=== PATIENT | female | born 1985 | race Caucasian/White ===

== ENCOUNTER 2016-09-14 08:24 | Emergency (ER) | payer OTHER ==
[2016-09-14 08:28] VITALS: TEMP 97.8
--- NOTE | 2016-09-14 09:00 | ED PDOC ---
HPI: Female Pain Time Seen by Provider: 09/14/16 08:34 Chief Complaint (Nursing): Female Genitourinary Chief Complaint (Provider): Vaginal Bleeding History Per: Patient History/Exam Limitations: no limitations Onset/Duration Of Symptoms: Hrs Current Symptoms Are (Timing): Still Present Associated Symptoms: denies: Fever, Nausea, Vomiting Additional Complaint(s): Sofy Gordon, a 31 year old female, who is currently 12 weeks () presents to the ED with abnormal vaginal bleeding. The patient reports that the bleeding started at around 6am this morning with clots and she has used 1 pad.The patient also reports that she is experiencing some lower abdominal cramping pains. She states that she is currently on care and was also recently started on macrobid for a urinary tract infection. Denies fever and vomiting Abnormal Vaginal Bleeding: Yes Past Medical History Reviewed: Historical Data, Nursing Documentation, Vital Signs Vital Signs: Last Vital Signs Temp 97.8 F 09/14/16 08:28 Pulse 73 09/14/16 08:28 Resp 18 09/14/16 08:28 BP 124/56 L 09/14/16 08:28 Pulse Ox 100 09/14/16 08:28 - Medical History PMH: No Chronic Diseases Other PMH: Urinary Tract Infection - Family History Family History: States: Unknown Family Hx - Allergies Allergies/Adverse Reactions: Allergies Allergy/AdvReac Type Severity Reaction Status Date / Time No Known Allergies Allergy Verified 09/14/16 08:34 Review of Systems ROS Statement: Except As Marked, All Systems Reviewed And Found Negative Constitutional: Negative for: Fever Gastrointestinal: Positive for: Abdominal Pain (Lower abdominal cramping pains) . Negative for: Nausea, Vomiting Genitourinary Female: Positive for: Vaginal Bleeding (Vaginal bleeding with clots) Physical Exam - Reviewed Nursing Documentation Reviewed: Yes Vital Signs Reviewed: Yes - Physical Exam Appears: Positive for: Non-toxic, No Acute Distress Head Exam: Positive for: ATRAUMATIC, NORMAL INSPECTION, NORMOCEPHALIC Skin: Positive for: Normal Color, Warm Eye Exam: Positive for: Normal appearance, EOMI, PERRL ENT: Positive for: Normal ENT Inspection Neck: Positive for: Normal, Painless ROM, Supple Cardiovascular/Chest: Positive for: Regular Rate, Rhythm, Chest Non Tender. Negative for: Tachycardia Respiratory: Positive for: Normal Breath Sounds. Negative for: Wheezing, Respiratory Distress Gastrointestinal/Abdominal: Positive for: Bowel Sounds, Soft, Tenderness (Right lower quadrant tenderness). Negative for: Guarding, Rebound Back: Positive for: Normal Inspection Extremity: Positive for: Normal ROM. Negative for: Tenderness, Pedal Edema, Deformity, Swelling Neurologic/Psych: Positive for: Alert, Oriented, Gait - Laboratory Results Result Diagrams: 09/14/16 09:22 09/14/16 09:22 - ECG O2 Sat by Pulse Oximetry: 100 (RA) Pulse Ox Interpretation: Normal Medical Decision Making Medical Decision Makin Initial Plan: 31 year old female presenting with abnormal vaginal bleeding Initial plan: * Type and Screen * Beta-HCG Quantitative * Upreg * Udip * CBC * PTT * Prothrombin time * Urinalysis * OB * Reevaluation 1433 OB Limited Findings Beta-HCG - 34146 units Cardiac activity: present Rate 145 bpm Impression: 13 weeks 1 day live intrauterine gestation. Gestational concordance documented. Scribe Attestation Documented by Shereen Awan acting as a scribe for Negrita Daily MD. Provider Attestation All medical record entries made by the Scribe were at my direction and personally dictated by me. I have reviewed the chart and agree that the record accurately reflects my personal performance of the history, physical exam, medical decision making, and the department course for this patient. I have also personally directed, reviewed, and agree with the discharge instructions and disposition.
[2016-09-14 09:43] LABS: ALB/GLOB RATIO 1.1 (1.0-2.1); ALBUMIN 3.7 g/dL (3.5-5.0); ALT/SGPT 27 U/L (9-52); AST/SGOT 20 U/L (14-36); BLOOD UREA NITROGEN 7 mg/dl (7-17); GFR AFRICAN-AMERICAN > 60; GFR NON-AFRICAN AMERICAN > 60
[2016-09-14 09:51] LABS: BASO % 0.2 % (0.0-2.0); EOS # 0.3 K/uL (0.0-0.7); EOS % 3.2 % (0.0-4.0); HEMOGLOBIN 12.9 g/dL (12.0-16.0); LYMPH # 2.3 K/uL (1.0-4.3); LYMPH % 22.1 % (20.0-40.0); MEAN CELL VOLUME 86.4 fl (81.0-99.0); MEAN CORPUSCULAR HEMOGLOBIN 29.1 pg (27.0-31.0); MEAN CORPUSCULAR HGB CONC 33.7 g/dL (33.0-37.0); MEAN PLATELET VOLUME 8.3 fl (7.2-11.7); MONO # 0.7 K/uL (0.0-0.8); MONO % 6.6 % (0.0-10.0); NEUT # 7.1 K/uL (1.8-7.0); NEUT % 67.9 % (50.0-75.0); RBC 4.44 Mil/uL (3.80-5.20); RED CELL DISTRIBUTION WIDTH 13.3 % (11.5-14.5); WHITE BLOOD COUNT 10.4 K/uL (4.8-10.8)
[2016-09-14 09:54] LABS: URINE BACTERIA RARE (<OCC); URINE BILIRUBIN NEGATIVE (NEGATIVE); URINE BLOOD SMALL (NEGATIVE); URINE CLARITY CLEAR (Clear); URINE COLOR STRAW (YELLOW); URINE GLUCOSE (UA) NEG (Normal); URINE LEUKOCYTE ESTERASE NEG Leu/uL (Negative); URINE NITRATE NEGATIVE (NEGATIVE); URINE PROTEIN NEGATIVE (NEGATIVE); URINE UROBILINOGEN 0.2-1.0 mg/dL (0.2-1.0)
[2016-09-14 10:15] LABS: INR 1.2 (0.9-1.2); PARTIAL THROMBOPLASTIN TIME 33.8 Seconds (25.6-37.1); PROTHROMBIN TIME 14.1 Seconds (9.8-13.1)
[2016-09-14 12:56] VITALS: RESP 20
--- NOTE | 2016-09-14 14:35 | US ---
PROCEDURE: HISTORY: Abd pain, 12 weeks gestation COMPARISON: None available. TECHNIQUE: Standard protocol for this study/examination. FINDINGS: Beta HCG results: 33494 units. Prior examinations from the current : None TECHNIQUE: Real-time 2D imaging, duplex and color Doppler. FINDINGS: Cardiac activity: Present Rate: 145 BPM Measurements: Variable presentation. Fundal Placenta. No evidence of abruption or previa Gestational age derived from LMP 12 weeks 1 day Gestational age derived from the following biometric parameters 13 weeks 1 day . Biparietal diameter 2.17 cm Head circumference7.63 cm Abdominal circumference 6.1 cm Femur length 1.00 cm Estimated weight 67.54 g Closed cervix measuring cm ADNEXA: Right: Not visualized Left: 1.5 x 3.2 cm. Normal Doppler arterial waveform documented Fluid in the cul-de-sac: None IMPRESSION: 13 weeks 1 day live intrauterine gestation. Gestational concordance documented.
[2016-09-14 15:25] VITALS: BP 99/47; PULSE 73; O2SAT 99
== END 2016-09-14 15:10 | disposition home or self-care (01) ==
LOC: H.ER 08:24
DX: O26.851 Spotting complicating pregnancy, first trimester (principal); Z3A.12 12 weeks gestation of pregnancy